=== PATIENT | female | born 2000 | race Caucasian/White ===

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

== ENCOUNTER 2018-06-17 20:39 | Emergency (ER) | payer OTHER ==
[2018-06-17] MEDS ORDERED: NS 1,000 ML IV ONE (21:04)
--- NOTE | 2018-06-17 21:04 | EDPHY ---
H & P Stated Complaint: syncope and now having numbness in right hand Time Seen by Provider: 06/17/18 21:03 HPI/ROS: HPI: This is a 17-year-old female who presents with Chief Complaint: syncope and now having numbness in right hand Location: body Quality: Syncopal episodes Duration: Prior to arrival Signs and Symptoms: no shortness of breath at rest, no shortness of breath on exertion, no cough, no chest pain, no palpitations, no lower extremity edema, no wheezing, no orthopnea, no paroxysmal nocturnal dyspnea, no fever, no injury/ trauma, no hemoptysis, no carpal pedal spasms Timing: Acute Severity: Moderate Context: Patient had a witnessed, syncopal episode, that lasted approximately 10-15 seconds while at a meeting at [facility]. She reports that she was sitting down when she started to feel faint and lightheaded. She denies that the room was spinning. She reports that she got up and her friend followed her out into the [place]. She then started to feel warm and get slightly anxious. Her friend noted that her head rolled back up against the wall and she"passed out"for a few seconds. When she came to she was not postictal. Denies tongue biting, incontinence. Patient reports that she ate and drank today. She is taking Florinef. She has a stress echo with Dr. Henderson scheduled in 2 days outpatient. She had an MRI performed 2 weeks ago that was normal per patient and EEG 1 week ago that was normal per patient. Currently on Holter monitor. She is not complaining of some decreased range of motion in her right index finger. She reports that initially she could not move any of her fingers but over time she has slowly been able to move them. Modifying Factors: None Comment: ROS: A comprehensive 10 system review of systems is otherwise negative aside from elements mentioned in the history of present illness. MEDICAL/SURGICAL/SOCIAL HISTORY: Medical history: Syncopal episodes. LMP 1-2 weeks. Surgical history: [place] teeth removal, tonsillectomy Social history: Student at [employer]. CONSTITUTIONAL: Polite and cooperative, well developed, well-nourished teenage white female, awake and alert, no obvious distress HEENT: Atraumatic and normocephalic, PERRL, EOMI. Nares patent; no rhinorrhea; no nasal mucosal edema. Tympanic membranes clear. Oropharynx clear, no exudate and moist pink mucosa. Airway patent. No lymphadenopathy. Neck: Supple, full range of motion, no midline tenderness Cardiovascular: Normal S1/S2, regular rate, regular rhythm, without murmur rub or gallop. PULMONARY/CHEST: Symmetrical and nontender. Clear to auscultation bilaterally. Good air movement. No accessory muscle usage. ABDOMEN: Soft, nondistended, nontender, no rebound, no guarding, no peritoneal signs, no masses or organomegaly. No CVAT. EXTREMITIES: 2/2 radial pulses, strength 5/5, right hand shows slight decreased flexion and extension of the DI P and PIP joints; good capillary refill; good light touch sensation. no deformities, no clubbing, no cyanosis or edema. NEUROLOGICAL: no focal neuro deficits. GCS 15. SKIN: Warm and dry, no erythema. no rash. Good capillary refill. Source: Patient Exam Limitations: No limitations - Personal History LMP (Females 10-55): 8-14 Days Ago Current Tetanus/Diphtheria Vaccine: Yes Current Tetanus Diphtheria and Acellular Pertussis (TDAP): Yes - Medical/Surgical History Hx Asthma: No Hx Chronic Respiratory Disease: No Hx Diabetes: No Hx Cardiac Disease: No Hx Renal Disease: No Hx Cirrhosis: No Hx Alcoholism: No Hx HIV/AIDS: No Hx Splenectomy or Spleen Trauma: No Other PMH: wisdom teeth, tonsillectomy - Social History Smoking Status: Never smoked Constitutional: Initial Vital Signs Temperature (C) 36.8 C 06/17/18 20:42 Heart Rate 66 06/17/18 20:42 Respiratory Rate 16 06/17/18 20:42 Blood Pressure 138/81 H 06/17/18 20:42 O2 Sat (%) 99 06/17/18 20:42 O2 Delivery Mode Room Air Allergies/Adverse Reactions: No Known Allergies Allergy (Unverified 06/17/18 20:45) Home Medications: Medication Instructions Recorded Sosa 06/17/18 Medical Decision Making ED Course/Re-evaluation: Vital signs reviewed and stable upon arrival. Placed on anchor tacker. IV access and laboratory studies ordered. I did not feel that imaging of the brain is needed as an MRI was performed 2 weeks ago and negative. Cervical x-rays ordered and patient given 1 L normal saline and IV Ativan 1 mg for carpal pedal spasm EKG shows normal sinus rhythm with rate of 56 beats per minute. No Arrhythmias , heart block, acute ischemic changes. 2124: Notified by tech that troponin is negative 2149: Labs reviewed. No signs of leukocytosis/anemia/platelet dysfunction/NINO/ electrolyte imbalance/VTE/ACS. Cervical x-ray my read shows no fracture, dislocation, significant degenerative disc disease. 2207: Reassessed patient. feeling in fingers back and full ROM. ambulated fine. Advised to keep follow-up appointment with Dr. Henderson outpatient and to wear Holter monitor as directed. She is to keep follow-up appointment with Dr. Henderson and advised to wear her Holter monitor. Differential Diagnosis: Syncope including but not limited to vasovagal syncope, arrhythmia, dehydration , and blood loss. - Data Points Laboratory Results: Laboratory Results 06/17/18 21:11 06/17/18 21:11 06/17/18 06/17/18 06/17/18 21:16 21:11 21:11 WBC RBC Hgb Hct MCV MCH MCHC RDW Plt Count MPV Neut % (Auto) Lymph % (Auto) [place] % (Auto) Eos % (Auto) Baso % (Auto) Nucleat RBC Rel Count Absolute Neuts (auto) Absolute Lymphs (auto) Absolute Monos (auto) Absolute Eos (auto) Absolute Basos (auto) Absolute Nucleated RBC Immature Gran % Immature Gran # D-Dimer Sodium 138 mEq/L mEq/L (135-145) Potassium 4.2 mEq/L mEq/L (3.3-5.0) Chloride 102 mEq/L mEq/L (97-110) Carbon Dioxide 26 mEq/l mEq/l (22-31) Anion Gap 10 mEq/L mEq/L (6-14) BUN 11 mg/dL mg/dL (7-23) Creatinine 0.8 mg/dL mg/dL (0.6-1.0) Estimated GFR > 60 Glucose 81 mg/dL mg/dL (70-100) Calcium 9.8 mg/dL mg/dL (8.5-10.4) POC Troponin I 0.00 ng/mL ng/mL (0.00-0.08) Beta HCG, Qual NEGATIVE 06/17/18 06/17/18 21:11 21:11 WBC 5.98 10^3/uL 10^3/uL (3.80-9.50) RBC 4.21 10^6/uL 10^6/uL (4.18-5.33) Hgb 13.0 g/dL g/dL (12.6-16.3) Hct 38.5 % % (38.0-47.0) MCV 91.4 fL fL (81.5-99.8) MCH 30.9 pg pg (27.9-34.1) MCHC 33.8 g/dL g/dL (32.4-36.7) RDW 12.2 % % (11.5-15.2) Plt Count 200 10^3/uL 10^3/uL (150-400) MPV 11.9 fL H fL (8.7-11.7) Neut % (Auto) 48.4 % % (39.3-74.2) Lymph % (Auto) 37.5 % % (15.0-45.0) [place] % (Auto) 12.2 % % (4.5-13.0) Eos % (Auto) 1.0 % % (0.6-7.6) Baso % (Auto) 0.7 % % (0.3-1.7) Nucleat RBC Rel Count 0.0 % % (0.0-0.2) Absolute Neuts (auto) 2.90 10^3/uL 10^3/uL (1.70-6.50) Absolute Lymphs (auto) 2.24 10^3/uL 10^3/uL (1.00-3.00) Absolute Monos (auto) 0.73 10^3/uL 10^3/uL (0.30-0.80) Absolute Eos (auto) 0.06 10^3/uL 10^3/uL (0.03-0.40) Absolute Basos (auto) 0.04 10^3/uL 10^3/uL (0.02-0.10) Absolute Nucleated RBC 0.00 10^3/uL 10^3/uL (0-0.01) Immature Gran % 0.2 % % (0.0-1.1) Immature Gran # 0.01 10^3/uL 10^3/uL (0.00-0.10) D-Dimer < 0.27 ug/mLFEU ug/mLFEU (0.00-0.50) Sodium Potassium Chloride Carbon Dioxide Anion Gap BUN Creatinine Estimated GFR Glucose Calcium POC Troponin I Beta HCG, Qual Medications Given: Discontinued Medications Sodium Chloride (Ns) 1,000 mls @ 0 mls/hr IV EDNOW ONE; Wide Open PRN Reason: Protocol Stop: 06/17/18 21:05 Last Admin: 06/17/18 21:14 Dose: 1,000 mls Lorazepam (Ativan Injection) 1 mg IVP EDNOW ONE Stop: 06/17/18 21:26 Last Admin: 06/17/18 21:30 Dose: 1 mg Point of Care Test Results: Chemistry 06/17/18 21:16 POC Troponin I 0.00 ng/mL ng/mL (0.00-0.08) Departure - Departure Disposition: Home, Routine, Self-Care Clinical Impression: Syncope Qualifiers: Syncope type: unspecified Qualified Code(s): R55 - Syncope and collapse Condition: Good Instructions: Syncope (ED) Additional Instructions: Rest as much as possible until you are feeling better. Continue to take Florinef as directed. Keep follow-up appointment with Dr. Henderson in 2 days for stress echocardiogram. Wear Holter monitor as directed. Return at once for any worsening symptoms or concerns. Referrals: Yasmeen Solis MD [Primary Care Provider] - As per Instructions Naman Henderson MD [Medical Doctor] - As per Instructions
[2018-06-17] MEDS ORDERED: LORazepam 2 MG/ML INJ IVP ONE (21:25)
[2018-06-17 21:28] LABS: PLATELET COUNT 200 10^3/uL (150-400)
[2018-06-17 22:05] VITALS: BP 127/91
--- NOTE | 2018-06-19 09:25 | CPEKG ---
Test Reason : OPEN Blood Pressure : / mmHG Vent. Rate : 056 BPM Atrial Rate : 056 BPM P-R Int : 138 ms QRS Dur : 085 ms QT Int : 410 ms P-R-T Axes : 071 048 030 degrees QTc Int : 396 ms Sinus rhythm Probable left atrial enlargement Confirmed by Seth Roger ([id number]) on 06/19/2018 9:25:26 AM Referred By: Confirmed By:Seth Roger
== END 2018-06-17 22:23 | disposition home or self-care (01) ==
DX: R55 Syncope and collapse (principal); R20.2 Paresthesia of skin; E86.9 Volume depletion, unspecified
CPT/HCPCS: 84484-PO; 96374; J2060

== ENCOUNTER → 2018-06-19 | Outpatient (CLI) | payer OTHER | LOC: FCP 11:56 | PROVIDERS: ATTEND Internal Medicine Cardiovascular Disease | DX: R55 Syncope and collapse (principal) ==

== ENCOUNTER 2018-07-17 23:42 | Emergency (ER) | payer OTHER ==
[2018-07-17] MEDS ORDERED: NS 1,000 ML IV ONE (23:50)
[2018-07-17] MEDS ORDERED: LORazepam 2 MG/ML INJ IVP ONE (23:50)
--- NOTE | 2018-07-17 23:55 | EDPHY ---
H & P Time Seen by Provider: 07/17/18 23:50 HPI/ROS: HPI CHIEF COMPLAINT: Syncope. HISTORY OF PRESENT ILLNESS: 17-year-old female, presents emergency room by EMS after she was hyperventilating and had a syncopal episode tonight. EMS found her in a seated position hyperventilating. They will to calmed her down. She was given Zofran nausea but no vomiting. According to the patient she has had this 16 times where she has syncopal episodes. She reports to me she has had a extensive medical workup is seen multiple physicians for this. She saw Dr. Henderson for her heart for syncope and states that her heart is otherwise healthy. She also states she seen Neurology and the current thinking of diagnosis for recurrent syncope episodes is nonepileptic seizures versus atypical migraine. Patient states that she is due to be picked up by her father tomorrow to go back to [place] will she will have further medical evaluation. Patient tonight states she was sitting on the couch, and then had a syncopal episode. EMS found her to be hyperventilating. The patient arrives to the emergency room and states that when she has these episodes her head gets turn to the right, and she cannot move her head. Additionally she keeps her right hand in a fixed locked position but can move her right arm. She states this usually resolves with antianxiety medication or muscle relaxants including cyclobenzaprine. Of note she tells me the leading diagnosis of her medical condition is nonepileptic seizures versus atypical migraines. Past Medical History: Denies significant medical history except for 16 syncopal episodes over the past year. Past Surgical History: Denies recent surgery Social History: [employer] student, plays volleyball. Denies drugs alcohol tobacco. Family History: Noncontributory ROS REVIEW OF SYSTEMS: 10 Systems were reviewed and negative with the exception of the elements mentioned in the history of present illness. Exam Constitutional nontoxic triage nursing summary reviewed, vital signs reviewed, awake/alert. Eyes normal conjunctivae and sclera, EOMI, PERRLA. HENT normal inspection, atraumatic, moist mucus membranes, no epistaxis, neck supple/ no meningismus, no raccoon eyes. Respiratory clear to auscultation bilaterally, normal breath sounds, no respiratory distress, no wheezing. Cardiovascular rate normal, regular rhythm, no murmur, no edema, distal pulses normal. Gastrointestinal soft, non-tender, no rebound, no guarding, normal bowel sounds, no distension, no pulsatile mass. Genitourinary no CVA tenderness. Musculoskeletal no midline vertebral tenderness, full range of motion, no calf swelling, no tenderness of extremities, no meningismus, good pulses, neurovascularly intact. Skin pink, warm, & dry, no rash, skin atraumatic. Neurologic back normal neurological exam however head is turned to the right and patient complains of right neck muscle spasm which is consistent with her previous episodes of this, additionally right for fingers are flexed in a bingo manager, thumb out, she states is normal this happens, awake, alert and oriented x 3, AAOx3, moves all 4 extremities equally, motor intact, sensory intact, CN II-XII intact, normal cerebellar, normal vision, normal speech. Psychiatric normal mood/affect. Heme/Lymph/Immune no lymphadenopathy. Differential Diagnosis: Includes but is not limited to in a particular order seizure, nonepileptic seizure, migraines, anxiety attack, panic attack, dehydration, electrolyte disturbance, cardiogenic syncope Medical Decision Making: Plan for this patient IV establishment IV fluid bolus , IV Ativan for anxiety muscle spasm, basic blood work, EKG, and re-evaluate. Re-evaluation: EKG interpretation by me on record in [email or web address] system. Impression time of EKG 2358, sinus rhythm rate of 64. No signs of acute ischemia or cardiac arrhythmia. D-dimer negative. Troponin negative. Vital signs stable. 0224: Patient re-evaluated this time resting comfortably no acute distress. Patient vital signs stable. Patient ambulated well to the emergency room bathroom without difficulty. She states she feels much better. She received 1 mg IV Ativan which greatly improved her symptoms. Blood work has been reviewed is unremarkable EKG nonischemic without any signs of cardiac arrhythmia no signs of WPW or Brugada. Patient would like to go home. Return precautions discussed with her. ED x-ray chest one view negative for acute cardiopulmonary disease. 2:26 a.m. patient resting comfortably. No chest pain no shortness of breath. Ambulated well without any lightheadedness feels comfortable being discharged. Source: Patient, EMS - Medical/Surgical History Hx Asthma: No Hx Chronic Respiratory Disease: No Hx Diabetes: No Hx Cardiac Disease: No Hx Renal Disease: No Hx Cirrhosis: No Hx Alcoholism: No Hx HIV/AIDS: No Hx Splenectomy or Spleen Trauma: No Other PMH: wisdom teeth, tonsillectomy - Social History Smoking Status: Never smoked Constitutional: Initial Vital Signs Temperature (C) 37.2 C 07/18/18 00:05 Heart Rate 60 07/18/18 00:05 Respiratory Rate 16 07/18/18 00:05 Blood Pressure 124/79 H 07/18/18 00:05 O2 Sat (%) 97 07/18/18 00:05 O2 Delivery Mode Room Air Allergies/Adverse Reactions: No Known Allergies Allergy (Verified 07/18/18 00:16) Home Medications: Medication Instructions Recorded Flexeril 10 MG (*) 07/18/18 Zofran Odt 4 mg (*) 07/18/18 Medical Decision Making - Data Points Laboratory Results: Laboratory Results 07/18/18 00:00 07/18/18 00:00 07/18/18 07/18/18 07/18/18 01:15 00:19 00:00 WBC RBC Hgb Hct MCV MCH MCHC RDW Plt Count MPV Neut % (Auto) Lymph % (Auto) [place] % (Auto) Eos % (Auto) Baso % (Auto) Nucleat RBC Rel Count Absolute Neuts (auto) Absolute Lymphs (auto) Absolute Monos (auto) Absolute Eos (auto) Absolute Basos (auto) Absolute Nucleated RBC Immature Gran % Immature Gran # PT INR APTT D-Dimer Sodium 141 mEq/L mEq/L (135-145) Potassium 4.4 mEq/L mEq/L (3.5-5.2) Chloride 103 mEq/L mEq/L (97-110) Carbon Dioxide 29 mEq/l mEq/l (22-31) Anion Gap 9 mEq/L mEq/L (6-14) BUN 12 mg/dL mg/dL (7-23) Creatinine 1.0 mg/dL mg/dL (0.6-1.0) Estimated GFR > 60 Glucose 93 mg/dL mg/dL (70-100) Calcium 9.7 mg/dL mg/dL (8.5-10.4) Magnesium 2.2 mg/dL mg/dL (1.6-2.3) Total Bilirubin 0.4 mg/dL mg/dL (0.1-1.4) Conjugated Bilirubin 0.2 mg/dL mg/dL (0.0-0.5) Unconjugated Bilirubin 0.2 mg/dL mg/dL (0.0-1.1) AST 20 IU/L IU/L (14-46) ALT 21 IU/L IU/L (9-52) Alkaline Phosphatase 69 IU/L IU/L (38-126) POC Troponin I 0.00 ng/mL ng/mL (0.00-0.08) NT-Pro-B Natriuret Pep 49 pg/mL pg/mL (0-125) Total Protein 7.5 g/dL g/dL (6.3-8.2) Albumin 4.6 g/dL g/dL (3.5-5.0) Lipase 111 IU/L IU/L (23-300) Urine Opiates Screen NEGATIVE (NEGATIVE) Urine Barbiturates NEGATIVE (NEGATIVE) Ur Phencyclidine Scrn NEGATIVE (NEGATIVE) Ur Amphetamine Screen NEGATIVE (NEGATIVE) U Benzodiazepines Scrn NEGATIVE (NEGATIVE) Urine Cocaine Screen NEGATIVE (NEGATIVE) U Marijuana (THC) Screen NEGATIVE (NEGATIVE) 07/18/18 07/18/18 00:00 00:00 WBC 6.13 10^3/uL 10^3/uL (3.80-9.50) RBC 4.48 10^6/uL 10^6/uL (4.18-5.33) Hgb 13.9 g/dL g/dL (12.6-16.3) Hct 41.7 % % (38.0-47.0) MCV 93.1 fL fL (81.5-99.8) MCH 31.0 pg pg (27.9-34.1) MCHC 33.3 g/dL g/dL (32.4-36.7) RDW 12.0 % % (11.5-15.2) Plt Count 224 10^3/uL 10^3/uL (150-400) MPV 13.0 fL H fL (8.7-11.7) Neut % (Auto) 55.6 % % (39.3-74.2) Lymph % (Auto) 29.2 % % (15.0-45.0) [place] % (Auto) 13.2 % H % (4.5-13.0) Eos % (Auto) 1.3 % % (0.6-7.6) Baso % (Auto) 0.5 % % (0.3-1.7) Nucleat RBC Rel Count 0.0 % % (0.0-0.2) Absolute Neuts (auto) 3.41 10^3/uL 10^3/uL (1.70-6.50) Absolute Lymphs (auto) 1.79 10^3/uL 10^3/uL (1.00-3.00) Absolute Monos (auto) 0.81 10^3/uL H 10^3/uL (0.30-0.80) Absolute Eos (auto) 0.08 10^3/uL 10^3/uL (0.03-0.40) Absolute Basos (auto) 0.03 10^3/uL 10^3/uL (0.02-0.10) Absolute Nucleated RBC 0.00 10^3/uL 10^3/uL (0-0.01) Immature Gran % 0.2 % % (0.0-1.1) Immature Gran # 0.01 10^3/uL 10^3/uL (0.00-0.10) PT 13.1 SEC SEC (12.0-15.0) INR 0.97 (0.83-1.16) APTT 27.6 SEC SEC (23.0-38.0) D-Dimer 0.30 ug/mLFEU ug/mLFEU (0.00-0.50) Sodium Potassium Chloride Carbon Dioxide Anion Gap BUN Creatinine Estimated GFR Glucose Calcium Magnesium Total Bilirubin Conjugated Bilirubin Unconjugated Bilirubin AST ALT Alkaline Phosphatase POC Troponin I NT-Pro-B Natriuret Pep Total Protein Albumin Lipase Urine Opiates Screen Urine Barbiturates Ur Phencyclidine Scrn Ur Amphetamine Screen U Benzodiazepines Scrn Urine Cocaine Screen U Marijuana (THC) Screen Medications Given: Discontinued Medications Sodium Chloride (Ns) 1,000 mls @ 0 mls/hr IV EDNOW ONE; Wide Open PRN Reason: Protocol Stop: 07/17/18 23:51 Last Admin: 07/18/18 00:05 Dose: 1,000 mls Lorazepam (Ativan Injection) 1 mg IVP EDNOW ONE Stop: 07/17/18 23:51 Last Admin: 07/18/18 00:06 Dose: 1 mg Point of Care Test Results: Chemistry 07/18/18 00:19 POC Troponin I 0.00 ng/mL ng/mL (0.00-0.08) Departure - Departure Disposition: Home, Routine, Self-Care Clinical Impression: Syncope Qualifiers: Syncope type: unspecified Qualified Code(s): R55 - Syncope and collapse Condition: Good Instructions: Syncope (ED) Additional Instructions: 1. Stay well-hydrated 2. Follow up with her doctor 3. Return to the emergency room worsening symptoms. Referrals: Patient,NotPresent [Unknown] - As per Instructions
[2018-07-18 00:04] LABS: PLATELET COUNT 224 10^3/uL (150-400)
[2018-07-18 00:12] LABS: INR 0.97 (0.83-1.16); PROTIME(PATIENT) 13.1 SEC (12.0-15.0)
[2018-07-18 02:26] VITALS: BP 110/61
--- NOTE | 2018-07-19 07:52 | CPEKG ---
Test Reason : OPEN Blood Pressure : / mmHG Vent. Rate : 064 BPM Atrial Rate : 063 BPM P-R Int : 129 ms QRS Dur : 091 ms QT Int : 401 ms P-R-T Axes : 062 045 042 degrees QTc Int : 414 ms Sinus rhythm Confirmed by Gibran Quiñones ([id number]) on 07/19/2018 7:51:59 AM Referred By: Confirmed By:Gibran Quiñones
== END 2018-07-18 02:29 | disposition home or self-care (01) ==
LOC: EDUNIT#
DX: R55 Syncope and collapse (principal)
CPT/HCPCS: 80305; 84484-PO; 96374; J2060